=== PATIENT | female | born 1980 | race Caucasian/White ===

== ENCOUNTER 2018-02-16 19:28 | Outpatient (CLI) | payer MEDICAID | END 2018-02-16 22:20 | disposition home or self-care (01) | LOC: OBT 19:28 → L-D 19:29 → OBT 22:20 | DX: O36.8130 Decreased fetal movements, third trimester, not applicable or unspecified (principal); Z3A.38 38 weeks gestation of pregnancy | CPT/HCPCS: 76818 ==